=== PATIENT | male | born 1975 | race Asian ===

== ENCOUNTER 2016-03-22 06:40 | Day surgery (SDC) | payer OTHER ==
[2016-03-22] VITALS (13 sets, daily range): BP systolic 108–129; BP diastolic 63–92; PULSE 92–112; RESP 18–28; Ht 182.9 cm; Wt 143.0 kg
[~2016-03-22] VITALS: Ht 182.9 cm; Wt 143.0 kg
[~2016-03-22 06:40] MED LIST: ARIP10TA13 PO; ATOR10TA65 PO; BUPR-75 PO; CARV6.25 PO; FURO40TA4 PO; LURA40TA PO; LURA80TA PO; POTA-57 PO; TRAZ50TA18 PO
[2016-03-22] MEDS ORDERED: CARV12.579 PO (08:04)
[2016-03-22] MEDS ORDERED: LURA80TA PO (08:05)
[2016-03-22] MEDS ORDERED: LISI-525 PO (08:13)
[2016-03-22] MEDS ORDERED: QUET100T25 PO (08:17)
[2016-03-22] MEDS ORDERED: ESCI10TA PO (08:18)
[2016-03-22] MEDS ORDERED: APIX5TAB PO (08:19)
[2016-03-22 08:31] LABS: BASOPHILS % 0.5 % (0.0-2.0); EOSINOPHILS # 0.3 10^3/ul (0.0-0.5); EOSINOPHILS % 4.1 % (0.0-7.0); HEMATOCRIT 46.7 % (42.0-52.0); HEMOGLOBIN 15.9 g/dl (14.0-18.0); LYMPHOCYTES % 26.4 % (15.0-51.0); MEAN CORPUSCULAR HEMOGLOBIN 30.9 pg (29.0-33.0); MEAN CORPUSCULAR HGB CONC 34.1 g/dl (32.0-37.0); MEAN CORPUSCULAR VOLUME 90.5 fl (82.0-101.0); MEAN PLATELET VOLUME 7.8 fl (7.4-10.4); MONOCYTE # 1.3 10^3/ul (0.3-0.9); NEUTROPHILS % 52.5 % (39.0-77.0); PLATELET COUNT 220 10^3/UL (140-440); RED BLOOD COUNT 5.17 10^6/ul (4.70-6.10); RED CELL DISTRIBUTION WIDTH 13.5 % (11.5-14.5); UNCORRECTED WBC 7.6 10^3/ul (4.8-10.8); WHITE BLOOD COUNT 7.6 10^3/ul (4.8-10.8)
[2016-03-22 08:39] LABS: INR 1.16; PROTIME 14.9 Sec (12.2-14.2); PT RATIO 1.2
[2016-03-22 08:40] LABS: PARTIAL THROMBOPLASTIN TIME 32.2 Sec (25.0-35.0)
[2016-03-22 08:43] LABS: CONDITION 1; LH ANALYZER COMMENTS 1; MONOCYTES % 16.5 % (0.0-11.0)
[2016-03-22 08:45] LABS: CALCIUM 8.9 mg/dl (8.4-10.2); CREATININE 1.34 mg/dl (0.61-1.24); POTASSIUM 3.6 mmol/L (3.5-5.1)
[2016-03-22] MEDS ORDERED: DIPHENHYDRAMINE 50 MG INJ IV ONE (09:00)
[2016-03-22] MEDS ORDERED: FAMOTIDINE 20 MG INJ IV ONE (09:00)
[2016-03-22] MEDS ORDERED: IODIXANOL LOCM 100 ML BTL ONE ×2 (09:24→10:25)
[2016-03-22] MEDS ORDERED: NITROGLYCERIN (IC) 100 MCG/ML INJ ONE (09:24)
[2016-03-22] MEDS ORDERED: HEPARIN 1000 UNITS/ML 10 ML INJ ONE (09:24)
[2016-03-22] MEDS ORDERED: LIDOCAINE 1% (MDV) 20 ML INJ ONE (09:24)
[2016-03-22] MEDS ORDERED: FENTAnyl 50 MCG/ML VIAL ONE (09:24)
[2016-03-22] MEDS ORDERED: VERAPAMIL 5 MG INJ ONE (09:24)
[2016-03-22] MEDS ORDERED: MIDAZOLAM 1 MG/ML 2 ML INJ ONE (09:24)
--- NOTE | 2016-03-22 10:27 | PDOCDIS ---
Discharge Instructions CONDITION Patient Condition: Good HOME CARE INSTRUCTIONS: Diet Instructions: Low Fat /Cholesterol ACTIVITY: Activity Restrictions Comment: no lifting with right arm more then 5 pounds x 3 days OTHER ORDERS: Other Orders: Restart anu 03/23/16 Nilesh Lake DO Mar 22, 2016 10:27
[2016-03-22] MEDS ORDERED: ACETAMINOPHEN 325 MG TAB PO PRN ×2 (10:30)
--- NOTE | 2016-03-22 18:32 | CARRPT ---
DATE OF PROCEDURE: 03/22/2016 PROCEDURES: 1. Left heart catheterization. 2. ____. 3. Interpretation and supervision of right and left coronary angiogram. 4. Left ventricular pressure measurements. 5. Right radial artery approach. PATIENT HISTORY: This is a 40-year-old male who presents with congestive heart failure and severe c ardiomyopathy. FINDINGS: HEMODYNAMICS 1. LV pressure 113/6 with an EDP of 22. 2. Aortic pressure 114/56. CORONARY ANATOMY 1. Left main is a large caliber vessel with no significant disease. 2. LAD is a medium to large caliber vessel with a mid 20% stenosis and a distal 10% stenosis. 3. Circumflex is a large caliber vessel with a proximal 10% stenosis. 4. RCA is a medium to large caliber vessel and is dominant with a mid-10% stenosis. DESCRIPTION OF PROCEDURE: The patient was brought to the ear mold laboratory technician after informed consent. The thomas ent was prepped and draped as per protocol. Right radial artery access was obtained and a 5/6-Frenc h sheath was placed in the right radial artery. A 5- JL2.5 catheter was used to engage the left loretta n and angiogram was performed. We next used a 5-Mongolian JR4 catheter to enter the left ventricle and pressure measurements were obtained as well as pullback. We next engaged the RCA. Angiogram was p erformed. There was no evidence of obstructive epicardial coronary artery disease. All catheters a nd wires were removed. The patient was transferred to recovery in stable condition with no immediat e complications. DIAGNOSIS: Baseline nonischemic cardiomyopathy. COMPLICATIONS: None. BLOOD LOSS: Minimal. RECOMMENDATIONS: Aggressive medical management. Dictated By: HERMAN CANDELARIO/NICKI Conf#: [id number] DID#: [id number]
== END 2016-03-22 14:21 | disposition home or self-care (01) ==
LOC: SDS 06:40
PROVIDERS: ATTEND Internal Medicine Cardiovascular Disease
DX: I50.9 Heart failure, unspecified (principal); I42.9 Cardiomyopathy, unspecified; I48.91 Unspecified atrial fibrillation; I10 Essential (primary) hypertension
CPT/HCPCS: 80048; 85025; 85610; 85730; 93458; C1769; C1887; J1644; J2250; J3010; Q9967; Z7610

== ENCOUNTER 2016-04-17 05:44 | Observation (INO) | payer OTHER ==
[2016-04-17] VITALS (14 sets, daily range): BP systolic 100–162; BP diastolic 56–102; PULSE 14–136; RESP 16–26
[~2016-04-17] VITALS: Ht 182.9 cm; Wt 136.0 kg
[~2016-04-17 05:44] MED LIST changes: +APIX5TAB PO; -ARIP10TA13 PO; +CARV12.579 PO; -CARV6.25 PO; +ESCI10TA PO; +LISI-525 PO; -LURA40TA PO; -POTA-57 PO; +QUET100T PO
[2016-04-17] MEDS ORDERED: LIDOCAINE 1% (MDV) 20 ML INJ ONE (06:38)
[2016-04-17] MEDS ORDERED: IODIXANOL LOCM 50 ML BTL ONE (06:38)
[2016-04-17] MEDS ORDERED: DIPHENHYDRAMINE 50 MG INJ ONE (07:06)
[2016-04-17] MEDS ORDERED: CEFAZOLIN 2 GM/50 ML (PMX) 50 ML IVPB ONE (07:06)
[2016-04-17] MEDS ORDERED: METHYLPREDNISOLONE 125 MG INJ ONE (07:07)
[2016-04-17] MEDS ORDERED: FENTAnyl 50 MCG/ML VIAL ONE ×3 (07:21→09:18)
[2016-04-17] MEDS ORDERED: MIDAZOLAM 1 MG/ML 2 ML INJ ONE ×3 (07:21→09:18)
[2016-04-17] MEDS ORDERED: FAMOTIDINE 20 MG INJ IV ONE (07:30)
[2016-04-17] MEDS ORDERED: POLYMYXIN/BACITRACIN 1L IRRIG IRR ONE (07:30)
[2016-04-17] MEDS ORDERED: [UNRECOGNIZED DRUG - REMARK] XX SCH (11:00)
[2016-04-17] MEDS: BUPROPION (XL) 150 MG TAB PO SCH (11:12)
[2016-04-17] MEDS: FUROSEMIDE 40 MG TAB PO SCH (11:14)
[2016-04-17] MEDS ORDERED: SOD CHLORIDE 0.9% 1,500 ML ONE (12:57)
--- NOTE | 2016-04-17 15:36 | HP ---
DATE OF ADMISSION: 04/17/2016 CHIEF COMPLAINT: Status post dual chamber implantable cardioverter defibrillator placement. HISTORY OF PRESENT ILLNESS: This is a 40-year-old male with a past medical history of nonischemic c ardiomyopathy with an ejection fraction of approximately 25%, history of CHF, history of atrial fibr illation, history of obesity, hypertension, history of depression and mood disorder who presents to [facility] to undergo elective dual chamber ICD placement. The patient was previo usly admitted to [facility] approximately 5 months ago in December. At that time, the patient came in with atrial fibrillation with rapid rate. He was diagnosed with new onset CHF a nd the patient was medically managed and was discharged. He then presented back to [facility] in March where he underwent cardiac catheterization that showed nonischemic cardiomyo lino. The patient has been medically managed at home and has been brought in today by his cardiolo gist, Dr. Lake to have a dual chamber ICD placed. The patient successfully underwent placement po stoperatively. The patient has been stable. There have been no episodes of chest pain, no hemoptys is, hematemesis or hematochezia. PAST MEDICAL HISTORY: As stated above, history of nonischemic cardiomyopathy, history of obesity, h istory of hypertension, history of atrial fibrillation, dyslipidemia and depression. PAST SURGICAL HISTORY: Status post cardiac catheterization, status post dual chamber ICD placement. ALLERGIES: THE PATIENT IS ALLERGIC TO SHELLFISH SHRIMP. FAMILY HISTORY: No family history of congestive kidney disease. SOCIAL HISTORY: Does not drink, smoke or do drugs. MEDICATIONS: The patient's medications have been reviewed and reconciled. REVIEW OF SYSTEMS: A 14-point review of systems was conducted. Pertinent positives stated in HPI, otherwise negative. PHYSICAL EXAMINATION: VITAL SIGNS: Blood pressure is currently 100/65, respirations 16, pulse 102, temperature 98.6. HEENT: Head is normocephalic. NECK: Supple. HEART: Irregularly irregular. LUNGS: Show diminished breath sounds at base. CHEST: The patient has a dressing over his left chest, clean, dry and intact. ABDOMEN: Soft, nontender to palpation. No rebound or guarding. EXTREMITIES: Negative for clubbing, cyanosis, or edema. DERMATOLOGIC: No rashes. MUSCULOSKELETAL: No joint effusions. NEUROLOGIC: No focal deficits.. LABORATORY DATA: Currently pending. ASSESSMENT AND PLAN: This is a 40-year-old male who presents with: 1. Nonischemic cardiomyopathy. Patient is status post dual chamber implantable cardioverter defibr illator placement. Plan at this point is to monitor the patient on the telemetry floor. We will fo llow up with cardiology for further recommendations. Continue local wound care at implantable cardi overter defibrillator site. 2. Atrial fibrillation, currently with rapid rate. Continue current medical management with Coreg. Anticipate resuming Eliquis in the morning and will monitor closely. 3. Hypertension. Blood pressure is currently controlled. Will resume lisinopril, Lasix and Coreg. 4. Nonischemic cardiomyopathy. The patient is currently compensated. Continue current medical man agement and follow up with cardiology recommendations. 5. Obesity. Recommend dietary modification. 6. History of depression. We will continue psychotropic medications Wellbutrin, Lexapro. Seroque l and Latuda. 7. Gastrointestinal prophylaxis. Continue sequential leg squeezers and H2 blockers 8. History of previous illicit drug use. Continue to monitor. Please note, I spoke up to 20 minutes with the patient in [id number] time discussing code status. The patient is a full code. Dictated By: ADILENE MERRILL/NICKI Conf#: [id number] DID#: [id number]
[2016-04-17 16:35] LABS: HEMATOCRIT 49.5 % (42.0-52.0); HEMOGLOBIN 16.7 g/dl (14.0-18.0); MEAN CORPUSCULAR HEMOGLOBIN 30.8 pg (29.0-33.0); MEAN CORPUSCULAR HGB CONC 33.8 g/dl (32.0-37.0); MEAN CORPUSCULAR VOLUME 91.2 fl (82.0-101.0); MEAN PLATELET VOLUME 8.2 fl (7.4-10.4); PLATELET COUNT 206 10^3/UL (140-440); RED BLOOD COUNT 5.43 10^6/ul (4.70-6.10); RED CELL DISTRIBUTION WIDTH 13.3 % (11.5-14.5); UNCORRECTED WBC 8.3 10^3/ul (4.8-10.8); WHITE BLOOD COUNT 8.3 10^3/ul (4.8-10.8)
[2016-04-17 16:38] LABS: CONDITION 1; LH ANALYZER COMMENTS 1
[2016-04-17 16:54] LABS: POTASSIUM 4.2 mmol/L (3.5-5.1)
[2016-04-17 16:56] LABS: CREATININE 1.35 mg/dl (0.61-1.24)
[2016-04-17 16:57] LABS: CALCIUM 9.1 mg/dl (8.4-10.2)
[2016-04-17 17:20] LABS: LYMPHOCYTES # 0.4 10^3/ul (0.8-2.9); MONOCYTE # 0.3 10^3/ul (0.3-0.9); NEUTROPHIL # 7.6 10^3/ul (1.6-7.5)
[2016-04-17 17:21] LABS: PLATELET ESTIMATE PLT APPEAR ADEQUATE
[2016-04-17] MEDS: ACETAMINOPHEN 325 MG TAB PO PRN (20:31)
[2016-04-17] MEDS ORDERED: traZODone 50 MG TAB PO SCH (21:00)
[2016-04-17] MEDS ORDERED: QUETIAPINE 100 MG TAB PO SCH (21:00)
[2016-04-18 00:24] VITALS: PULSE 102
[2016-04-18] MEDS: ACETAMINOPHEN 325 MG TAB PO PRN (04:16)
[2016-04-18 04:19] VITALS: BP 135/77; RESP 20
[2016-04-18 04:32] VITALS: PULSE 82
[2016-04-18 07:12] VITALS: BP 109/63; RESP 20
[2016-04-18 08:34] VITALS: PULSE 83
[2016-04-18 08:37] LABS: HEMATOCRIT 46.3 % (42.0-52.0); HEMOGLOBIN 15.6 g/dl (14.0-18.0); LYMPHOCYTES # 0.9 10^3/ul (0.8-2.9); LYMPHOCYTES % 6.8 % (15.0-51.0); MEAN CORPUSCULAR HEMOGLOBIN 30.8 pg (29.0-33.0); MEAN CORPUSCULAR HGB CONC 33.8 g/dl (32.0-37.0); MEAN CORPUSCULAR VOLUME 91.2 fl (82.0-101.0); MEAN PLATELET VOLUME 8.4 fl (7.4-10.4); MONOCYTE # 0.9 10^3/ul (0.3-0.9); MONOCYTES % 6.5 % (0.0-11.0); NEUTROPHIL # 11.6 10^3/ul (1.6-7.5); NEUTROPHILS % 86.7 % (39.0-77.0); PLATELET COUNT 175 10^3/UL (140-440); RED BLOOD COUNT 5.08 10^6/ul (4.70-6.10); RED CELL DISTRIBUTION WIDTH 13.7 % (11.5-14.5); UNCORRECTED WBC 13.4 10^3/ul (4.8-10.8); WHITE BLOOD COUNT 13.4 10^3/ul (4.8-10.8)
[2016-04-18 08:40] LABS: POTASSIUM 4.1 mmol/L (3.5-5.1)
[2016-04-18 08:42] LABS: CREATININE 0.98 mg/dl (0.61-1.24)
[2016-04-18 08:43] LABS: CALCIUM 9.2 mg/dl (8.4-10.2); PHOSPHORUS 3.4 mg/dl (2.5-4.9)
[2016-04-18 08:44] LABS: MAGNESIUM 1.8 mg/dl (1.7-2.5)
[2016-04-18 08:57] LABS: CONDITION 1
[2016-04-18] MEDS ORDERED: NON-FORMULARY/PATIENT OWN MED (Lurasidone Hcl (Latuda) 80 MG) XX SCH (09:00)
[2016-04-18] MEDS ORDERED: LISINOPRIL 20 MG TAB PO SCH (09:00)
[2016-04-18] MEDS ORDERED: ESCITALOPRAM 10 MG TAB PO SCH (09:00)
[2016-04-18] MEDS: BUPROPION (XL) 150 MG TAB PO SCH (09:14)
[2016-04-18] MEDS: FUROSEMIDE 40 MG TAB PO SCH (09:14)
[2016-04-18 11:14] VITALS: BP 118/73; RESP 20
--- NOTE | 2016-04-18 11:46 | PN ---
DATE: 04/18/2016 SUBJECTIVE: The patient feels well, minimal pain at the site. OBJECTIVE: VITAL SIGNS: Temperature 98.3, pulse 83, blood pressure 109/63, oxygen saturation 96% on room air. NECK: No jugular venous distention. LUNGS: Clear. HEART: ICD site is clean, dry, and intact with no hematoma noted. LABORATORY RESULTS FROM YESTERDAY: Reviewed. Creatinine 1.3. IMAGING: No pneumothorax on x-ray. ASSESSMENT: At this time, the patient is cleared for discharge to be completed by Dr. Interiano. He is to resume Xarelto this evening. PLAN: Follow him in the office in the coming days. Dictated By: LUIS ENRIQUE MONTERO/NICKI Conf#: [id number] DID#: [id number]
--- NOTE | 2016-04-18 12:22 | OPR ---
DATE OF OPERATION: 04/17/2016 PREOPERATIVE DIAGNOSIS: Cardiomyopathy, congestive heart failure, and atrial fibrillation. POSTOPERATIVE DIAGNOSIS: Cardiomyopathy, congestive heart failure, and atrial fibrillation. PROCEDURE PERFORMED: Dual-chamber implantable cardioverter/defibrillator implantation with failed l eft ventricular lead placement. DESCRIPTION OF PROCEDURE: The patient was brought to the catheterization laboratory in a fasting st ate. Informed consent was signed for the procedure and sedation. The patient was given antibiotics prior to skin incision. A 4 cm incision was made under the left clavicle. A venogram revealed patent subclavian vein. Three venous accesses were obtained by using the axillary approach. Through the first sheath, a 9-Zambian peel-away sheath was placed through which the dual coil ICD heath d was placed on the lower RV septum. It was screwed into place where excellent sensing and pacing c haracteristics were obtained. The sheath was split and the lead was sutured to the fascia in the us ual fashion. Subsequently a Glidewire was placed through one of the accesses using a 7-Zambian dilator to transiti on. Over the Glidewire a Medtronic CS guide catheter extended hook was placed. Multiple attempts w ere made at calculated the coronary sinus using the extended hook as well as in/out catheters and CS L Decapolar catheters. The CS was not cannulated convincingly at any point. Difficulty was had due to patient's extremely large right atrium. The sheath was exchanged for multiple configurations; h owever, at no point was I successful in cannulating the coronary sinus. A decision to proceed with a dual-chamber ICD implantation was made. Through the same access, a 7-Zambian sheath was placed and the right atrial lead was placed in the ri t atrial appendage and screwed into place where excellent sensing and pacing characteristics were confirmed. The sheath was split and the lead was sutured to the fascia in the usual fashion. The pocket was irrigated. The device was attached to the leads. Pacing characteristics were confir med. Biventricular ICD generator was placed into the pocket with the intention of perhaps upgrading with an epicardial LV lead in the future. Pocket was closed in layers using 2-0 and 4-0 absorbable sutures. CONTROL ROOM AGENT: [employer]. Dictated By: LUIS ENRIQUE MONTERO/NICKI Conf#: [id number] DID#: [id number]
--- NOTE | 2016-04-18 15:04 | DS ---
DATE OF ADMISSION: 04/17/2016 DATE OF DISCHARGE: 04/18/2016 HOSPITAL COURSE: This is a 40-year-old male with a past medical history of nonischemic cardiomyopat hy with ejection fraction approximately 25%, history of CHF, atrial fibrillation, history of obesity , hypertension, depression, bipolar disorder who presented to [facility] to underg o elective dual chamber ICD placement. Patient was previously at [facility] appro ximately 5 months ago in December. At that time, he came in with atrial fibrillation with rapid rate . The patient was newly diagnosed with CHF which was medically managed and discharged. He underwen t cardiac catheterization approximately 1 month later, which showed nonischemic cardiomyopathy. Yes terday, the patient underwent elective ICD dual chamber placement by Dr. Lake. Following the proc edure, the patient was stable, was admitted to telemetry for overnight to telemetry for observation. The patient had no acute complications and currently will be discharged home where he will follow up with his primary care physician and his die turner in 1 week's time. At the time of discharge, the patient is stable, in no acute distress. FINAL DIAGNOSES: 1. Nonischemic cardiomyopathy, compensated. Continue current medical management. 2. Atrial fibrillation. Currently rate controlled. The patient will resume Coreg and Eliquis this evening. 3. Hypertension, controlled. He will continue current blood pressure regimen. 4. Status nonischemic cardiomyopathy. The patient is status post dual chamber placement. Continue medical management and follow up with Cardiology. 5. Renal insufficiency, possible chronic kidney disease. The patient's renal function is stable. The patient will follow up with his PCP and may be followed up by nephrology in outpatient setting. 6. History of depression, bipolar disorder. Will continue the patient on Seroquel, Latuda, Lexapro and Wellbutrin. 7. Previous history of drug abuse. CONDITION ON DISCHARGE: At time of discharge, the patient is stable, no acute distress. FINAL MEDICATIONS: Patient will resume: 1. Eliquis. 2. Atorvastatin. 3. Wellbutrin. 4. Coreg. 5. Lexapro. 6. Furosemide. 7. Lisinopril. 8. Latuda. 9. Seroquel. 10. Trazodone. Please note I spent over 40 minutes of time preparing the patient's discharge, discussed the case wi die turner, Dr. Cifuentes. Dictated By: ADILENE MERRILL/NICKI Conf#: [id number] DID#: [id number]
== END 2016-04-18 11:40 | disposition home or self-care (01) ==
LOC: SDS 05:44 → TEL 10:16 → UNDOADMOB 15:01
PROVIDERS: ADMIT Internal Medicine Cardiovascular Disease; ATTEND Internal Medicine Cardiovascular Disease
DX: I50.9 Heart failure, unspecified (principal); I42.9 Cardiomyopathy, unspecified; I48.91 Unspecified atrial fibrillation; F32.9 Major depressive disorder, single episode, unspecified; I10 Essential (primary) hypertension; E66.9 Obesity, unspecified; Z68.41 Body mass index [BMI] 40.0-44.9, adult
CPT/HCPCS: 33249; 80048; 83735; 84100; 85025; C1769; C1882; C1887; C1895; C2629; J0690; J1200; J2250; J2930; J3010; J7040; L3260; Q9967; Z7500; Z7610; G0378

== ENCOUNTER 2016-04-22 19:15 | Inpatient (IN) | payer OTHER ==
[~2016-04-22] VITALS: Ht 182.9 cm; Wt 138.2 kg
[2016-04-22] MEDS ORDERED: FUROSEMIDE 40 MG INJ IV STA (19:25)
[2016-04-22] MEDS ORDERED: NITROGLYCERIN 2% 1 GM OINT PKT TD STA (19:25)
[2016-04-22] MEDS ORDERED: ASPIRIN 81 MG TAB PO STA (19:25)
[2016-04-22] MEDS ORDERED: NITROGLYCERIN (SL) 0.4 MG TAB SL PRN (19:30)
[2016-04-22] MEDS ORDERED: DILTIAZEM 25 MG INJ IV ONE ×2 (20:00→21:00)
[2016-04-22] MEDS ORDERED: BUSP10TA2 PO (20:02)
[2016-04-22 20:08] LABS: BASOPHILS % 0.4 % (0.0-2.0); EOSINOPHILS # 0.1 10^3/ul (0.0-0.5); EOSINOPHILS % 1.7 % (0.0-7.0); HEMATOCRIT 50.1 % (42.0-52.0); HEMOGLOBIN 16.8 g/dl (14.0-18.0); LYMPHOCYTES # 2.3 10^3/ul (0.8-2.9); LYMPHOCYTES % 26.3 % (15.0-51.0); MEAN CORPUSCULAR HEMOGLOBIN 30.7 pg (29.0-33.0); MEAN CORPUSCULAR HGB CONC 33.5 g/dl (32.0-37.0); MEAN CORPUSCULAR VOLUME 91.6 fl (82.0-101.0); MEAN PLATELET VOLUME 8.3 fl (7.4-10.4); MONOCYTE # 1.3 10^3/ul (0.3-0.9); MONOCYTES % 15.2 % (0.0-11.0); NEUTROPHIL # 4.9 10^3/ul (1.6-7.5); NEUTROPHILS % 56.4 % (39.0-77.0); PLATELET COUNT 179 10^3/UL (140-440); RED BLOOD COUNT 5.47 10^6/ul (4.70-6.10); RED CELL DISTRIBUTION WIDTH 14.3 % (11.5-14.5); UNCORRECTED WBC 8.8 10^3/ul (4.8-10.8); WHITE BLOOD COUNT 8.8 10^3/ul (4.8-10.8)
[2016-04-22 20:17] LABS: INR 1.85; PROTIME 21.5 Sec (12.2-14.2); PT RATIO 1.7
[2016-04-22 20:18] LABS: PARTIAL THROMBOPLASTIN TIME 41.2 Sec (25.0-35.0)
[2016-04-22 20:25] LABS: CONDITION 1; LH ANALYZER COMMENTS 1
[2016-04-22] MEDS ORDERED: DILTIAZEM 30 MG TAB PO ONE (20:30)
[2016-04-22 20:36] LABS: POTASSIUM 4.6 mmol/L (3.5-5.1)
[2016-04-22 20:39] LABS: CREATININE 1.6 mg/dl (0.61-1.24)
[2016-04-22 20:40] LABS: CALCIUM 9.4 mg/dl (8.4-10.2)
--- NOTE | 2016-04-22 20:41 | ERD ---
ER Documentation Chief Complaint Date/Time DATE: 04/22/16 TIME: 20:40 Chief Complaint feels like his pacemaker isnt working. SOB/diaphoretic HPI Patient is a 40-year-old male with A. fib, hypertension, CHF who presents with shortness of breath. He had an AICD placed 1 week ago and felt like it turned off 2 nights after it was placed. He has shortness of breath as well. His primary doctor is Dr. Suzanne arguello and his icu rn was Dr. Cifuentes. He has had no treatment as of yet. ROS All systems reviewed and are negative except as per history of present illness. Medications Home Meds Reported Medications Buspirone Hcl* (Buspirone Hcl*) 10 Mg Tab, 10 MG PO BID, TAB 04/22/16 Apixaban* (Eliquis*) 5 Mg Tablet, 5 MG PO BID, TAB 03/22/16 Escitalopram Oxalate* (Lexapro*) 10 Mg Tablet, 10 MG PO DAILY, #30 TAB 03/22/16 Quetiapine Fumarate* (Seroquel*) 100 Mg Tablet, 100 MG PO HS, #30 TAB 03/22/16 Lisinopril* (Zestril*) 20 Mg Tablet, 20 MG PO DAILY, #30 TAB 03/22/16 Lurasidone Hcl (LATUDA) 80 Mg Tablet, 80 MG PO DAILY, #30 TAB 03/22/16 Carvedilol* (Carvedilol*) 12.5 Mg Tablet, 12.5 MG PO BID, #60 TAB 03/22/16 Furosemide* (Furosemide*) 40 Mg Tablet, 40 MG PO DAILY, TAB 01/04/16 Atorvastatin Calcium (Atorvastatin Calcium) 10 Mg Tablet, 10 MG PO QHS, #30 TAB 01/04/16 Bupropion Hcl* (Wellbutrin XL*) 150 Mg Tab.sr.24h, 150 MG PO QAM, TAB.SA 01/04/16 Trazodone Hcl* (Trazodone Hcl*) 50 Mg Tablet, 50 MG PO QHS, #30 TAB 01/04/16 Allergies Allergies: Coded Allergies: shellfish derived (Verified Allergy, Unknown, ITCHY, 04/22/16) shrimp (Verified Allergy, Unknown, 04/22/16) PMhx/Soc History of Surgery: No Anesthesia Reaction: No Hx Neurological Disorder: No Hx Respiratory Disorders: No Hx Cardiac Disorders: Yes (afib, heart failure ) Hx Psychiatric Problems: No Hx Miscellaneous Medical Probl: No Hx Alcohol Use: No Hx Substance Use: No Hx Tobacco Use: No Smoking Status: Never smoker FmHx Family History: No coronary disease Physical Exam Vitals Vital Signs Date Time Temp Pulse Resp B/P Pulse Ox O2 Delivery O2 Flow Rate FiO2 04/22/16 20:04 97.9 104 18 120/107 98 Nasal Cannula 2.0 04/22/16 19:40 122 18 125/108 98 Nasal Cannula 2.0 04/22/16 19:40 Nasal Cannula 2 04/22/16 19:20 62 17 121/98 98 Physical Exam Const: Diaphoretic Head: Atraumatic Eyes: Normal Conjunctiva ENT: Normal External Ears, Nose and Mouth. Neck: Full range of motion..~ No meningismus. Resp: Tachycardic rate with irregular rhythm Cardio: Regular rate and rhythm, no murmurs Abd: Soft, non tender, non distended. Normal bowel sounds Skin: Diaphoretic skin Back: No midline or flank tenderness Ext: No cyanosis, or edema Neur: Awake and alert Psych: Normal Mood and Affect Result Diagram: 04/22/16195404/22/161954 Results 24 hrs Laboratory Tests Test 04/22/16 19:55 Activated Partial Thromboplast Time 41.2Sec Anion Gap 20 Basophils # 0.010^3/ul Basophils % 0.4% Blood Urea Nitrogen 22mg/dl Calcium Level 9.4mg/dl Carbon Dioxide Level 24mmol/L Chloride Level 102mmol/L Creatinine 1.60mg/dl Eosinophils # 0.110^3/ul Eosinophils % 1.7% Glucose Level 111mg/dl Hematocrit 50.1% Hemoglobin 16.8g/dl INR International Normalized Ratio 1.85 Lymphocytes # 2.310^3/ul Lymphocytes % 26.3% Mean Corpuscular Hemoglobin 30.7pg Mean Corpuscular Hemoglobin Concent 33.5g/dl Mean Corpuscular Volume 91.6fl Mean Platelet Volume 8.3fl Monocytes # 1.310^3/ul Monocytes % 15.2% Neutrophils # 4.910^3/ul Neutrophils % 56.4% Nucleated Red Blood Cells # 0.010^3/ul Nucleated Red Blood Cells % 0.0/100WBC Platelet Count 78821^3/UL Potassium Level 4.6mmol/L Prothrombin Time Pending Prothrombin Time Ratio 1.7 Red Blood Count 5.4710^6/ul Red Cell Distribution Width 14.3% Sodium Level 141mmol/L Troponin I 0.035ng/ml White Blood Count 8.810^3/ul Current Medications Medications (Trade) Dose Ordered Sig/[place] Route PRN Reason Start Time Stop Time Status Last Admin Dose Admin Aspirin (Aspirin) 162 mg ONCE STAT PO 04/22/16 19:25 04/22/16 19:26 04/22/16 19:49 Nitroglycerin (Nitroglycerin 2% Oint) 1 inch ONCE STAT TD 04/22/16 19:25 04/22/16 19:26 Nitroglycerin (Nitroglycerin (Sl Tab) 0.4 Mg) 1 tab Q5M UP TO 3 DOSES PRN SL CHEST PAIN 04/22/16 19:30 Furosemide (Lasix) 40 mg ONCE STAT IV 04/22/16 19:25 04/22/16 19:26 04/22/16 19:48 Diltiazem HCl (Cardizem Iv) 10 mg ONCE ONCE IV 04/22/16 20:00 04/22/16 20:01 04/22/16 19:53 Diltiazem HCl (Cardizem) 30 mg ONCE ONCE PO 04/22/16 20:30 04/22/16 20:31 04/22/16 20:28 Diltiazem HCl (Cardizem Iv) 10 mg ONCE ONCE IV 04/22/16 21:00 04/22/16 21:01 04/22/16 20:46 Procedures/MDM EKG read by me: Rate/Rhythm: Rapid atrial fibrillation at a rate of 128 Intervals: Normal Impression: Rapid atrial fibrillation without evidence of ischemia Chest X-ray 1V Interpreted by me: Soft Tissue: No acute abnormalities Bones: No acute abnormalities Mediastinum/Cardiac Silhouette/Lungs: Cardiomegaly with pulmonary edema at the bases bilaterally, no pneumonia or pneumothorax Patient is a 40-year-old male who presents with what appears to be pulmonary edema and rapid atrial fibrillation. He was given aspirin, nitroglycerin, diltiazem IV, and diltiazem p.o. I also called [employer] and a rep came to interrogate the pacemaker/AICD. The AICD is working correctly but he has been in rapid atrial fibrillation in the low 100s since placement of the device. I wanted to admit the patient to a telemetry bed for further treatment of A. fib and CHF but he is refusing and wants to leave AGAINST MEDICAL ADVICE. I explained to him the risks of signing out AGAINST MEDICAL ADVICE including myocardial infarction and the patient understands the risks. He should follow-up with his icu rn within 24 hours for reevaluation. He can return sooner for any worsening symptoms. Critical Care: Time: 35 minutes excluding all billable procedures. Treatments/Evaluations: Close monitoring and treatment of unstable vital signs, cardiorespiratory, and neurologic status, while maintaining tight balance of fluid, respiratory, and cardiac interventions. Departure Diagnosis: Primary Impression: Rapid atrial fibrillation Additional Impressions: Shortness of breath CHF exacerbation Congestive heart failure type: unspecified congestive heart failure type Qualified Code: I50.9 - Acute on chronic congestive heart failure, unspecified congestive heart failure type Condition: Fair Patient Instructions: Atrial Fibrillation, Heart Failure, General Referrals: MEI SNOWDEN (PCP) LUIS ENRIQUE CIFUENTES MD Additional Instructions: FOLLOW UP WITH YOUR PRIMARY CARE PHYSICIAN TOMORROW.Return to this facility if you are not improving as expected. RC KASPER MD Apr 22, 2016 20:41
[2016-04-22 20:51] LABS: TROPONIN-I 0.035 ng/ml (0.00-0.12)
[2016-04-22] MEDS ORDERED: ONDANSETRON 4 MG INJ IV PRN (21:30)
[2016-04-22] MEDS ORDERED: ACETAMINOPHEN 325 MG TAB PO PRN (21:30)
--- NOTE | 2016-04-22 22:09 | RADRPT ---
PROCEDURE: XR Chest. CLINICAL INDICATION: Chest pain TECHNIQUE: Single AP portable chest COMPARISON: 01/04/2016 FINDINGS: Marked cardiomegaly and/or pericardial effusion. Low interval change compared to prior study. Mode rate vascular congestion. Dual chamber left chest pacemaker in place. . No focal consolidation. Sm all right pleural effusion. No pneumothorax. The osseous structures and soft tissues are unremarka ble. IMPRESSION: 1. Mild CHF and marked cardiomegaly. No focal consolidation. 2. Small right pleural effusion RPTAT:AAJJ Ozzie Woodruff Physician Date Time Electronically viewed and signed by Physician José on 04/22/2016 22:09 FAMILIA/
[2016-04-22 22:18] VITALS: TEMP 98.1
[2016-04-22 22:30] VITALS: Ht 182.9 cm; Wt 138.2 kg
[2016-04-22 22:33] VITALS: PULSE 80
[2016-04-22 22:42] VITALS: BP 117/78; RESP 16
[2016-04-22 23:53] VITALS: BP 108/72; RESP 16
[2016-04-23] VITALS (8 sets, daily range): BP systolic 94–125; BP diastolic 51–75; PULSE 60–92; RESP 16–20
[2016-04-23] MEDS ORDERED: ZOLPIDEM 5 MG TAB PO PRN
[2016-04-23] MEDS ORDERED: morphine 2 MG INJ IV PRN
[2016-04-23] MEDS ORDERED: NACL 0.9% 3 ML SYG IV SCH
[2016-04-23] MEDS ORDERED: HYDROCODONE/APAP (5/325) TAB PO PRN
[2016-04-23] MEDS ORDERED: ONDANSETRON 4 MG INJ IV PRN
[2016-04-23] MEDS ORDERED: DOCUSATE SODIUM 100 MG CAP PO PRN
[2016-04-23] MEDS ORDERED: ACETAMINOPHEN 325 MG TAB PO PRN
[2016-04-23 01:43] LABS: CK-MB 1.62 ng/ml (0.0-2.4)
[2016-04-23 01:45] LABS: TROPONIN-I 0.041 ng/ml (0.00-0.12)
[2016-04-23] MEDS ORDERED: LORAZEPAM 1 MG TAB PO PRN (04:00)
[2016-04-23] MEDS ORDERED: FUROSEMIDE 40 MG INJ IV SCH (06:00)
[2016-04-23 06:38] LABS: POTASSIUM 3.7 mmol/L (3.5-5.1)
[2016-04-23 06:40] LABS: CREATININE 1.31 mg/dl (0.61-1.24)
[2016-04-23 06:41] LABS: CALCIUM 9.1 mg/dl (8.4-10.2); MAGNESIUM 1.9 mg/dl (1.7-2.5); PHOSPHORUS 4.9 mg/dl (2.5-4.9)
[2016-04-23 06:46] LABS: BASOPHILS % 0.7 % (0.0-2.0); EOSINOPHILS # 0.2 10^3/ul (0.0-0.5); EOSINOPHILS % 2.6 % (0.0-7.0); HEMATOCRIT 45.6 % (42.0-52.0); HEMOGLOBIN 15.5 g/dl (14.0-18.0); LYMPHOCYTES # 1.7 10^3/ul (0.8-2.9); MEAN CORPUSCULAR HEMOGLOBIN 30.9 pg (29.0-33.0); MEAN CORPUSCULAR VOLUME 90.8 fl (82.0-101.0); MEAN PLATELET VOLUME 8.3 fl (7.4-10.4); MONOCYTE # 1.2 10^3/ul (0.3-0.9); MONOCYTES % 17.3 % (0.0-11.0); NEUTROPHIL # 3.9 10^3/ul (1.6-7.5); NEUTROPHILS % 55.4 % (39.0-77.0); PLATELET COUNT 161 10^3/UL (140-440); RED BLOOD COUNT 5.02 10^6/ul (4.70-6.10); RED CELL DISTRIBUTION WIDTH 14.1 % (11.5-14.5)
[2016-04-23 06:50] LABS: CK-MB 1.41 ng/ml (0.0-2.4)
[2016-04-23 06:51] LABS: TROPONIN-I 0.026 ng/ml (0.00-0.12)
[2016-04-23 06:54] LABS: CONDITION 1; LH ANALYZER COMMENTS 1
--- NOTE | 2016-04-23 07:47 | HP ---
DATE OF ADMISSION: 04/22/2016 CHIEF COMPLAINT: Shortness of breath. HISTORY OF PRESENT ILLNESS: The patient is a 40-year-old male with a history of nonischemic cardiom yopathy, atrial fibrillation, hypertension, depression, bipolar disease, history of previous drug us e, status post recent ICD placement for his cardiomyopathy. The patient has a known ejection fracti on of 25%. He has had hospitalizations for CHF exacerbation. The patient did have recent cardiac c atheterization that showed nonischemic cardiomyopathy. The patient presented with shortness of carlin th over the past several days. He has no other complaints at this time. PAST MEDICAL HISTORY: As per HPI. PAST SURGICAL HISTORY: Status post heart catheterization, status post dual chamber ICD placement. HOME MEDICATIONS: 1. Buspirone. 2. Eliquis. 3. Lexapro. 4. Seroquel. 5. Lisinopril. 6. Latuda. 7. Coreg. 8. Furosemide. 9. Atorvastatin. 10. Wellbutrin. 11. Trazodone. ALLERGIES: SHELLFISH AND SHRIMP. FAMILY HISTORY: No reports of coronary artery disease. SOCIAL HISTORY: No alcohol, tobacco, or drug use at this time. REVIEW OF SYSTEMS: A 12-point review of systems negative except that in the HPI. PHYSICAL EXAMINATION: VITAL SIGNS: Temperature is 97.9, pulse 79, respiratory rate 16, BP is 117/78, saturation 94% on ro om air. GENERAL: No acute distress, alert and oriented. HEENT: Normocephalic, atraumatic. LUNGS: Clear to auscultation. CARDIOVASCULAR: Regular rate and rhythm. ABDOMEN: Nondistended, nontender, soft. EXTREMITIES: No clubbing, cyanosis, or edema. LABORATORIES: CBC is within normal limits. Chemistry within normal limits except for BUN of 22, cr eatinine is 1.60. Troponins is 0.035. INR is 1.85. DIAGNOSTICS: Chest x-ray shows mild CHF, marked cardiomegaly, no focal consolidation, small right p leural effusion. ASSESSMENT AND PLAN: 1. Systolic congestive heart failure exacerbation. The patient has a known history of nonischemic cardiomyopathy with an ejection fraction of 25%. The patient is status post recent ICD placement la week. We will diurese with Lasix IV and hold his home Lasix p.o. 2. Atrial fibrillation. The patient's rate was elevated in the ED, but now it is rate controlled. Continue home medications including his home Eliquis and beta bernarda. 3. Depression with bipolar disorder. Continue home psychiatric medications. 4. Hypertension, stable. Continue home medications. 5. Chronic kidney disease. The patient's creatinine is slightly elevated compared to several days ago. This may be cardiorenal in etiology secondary to congestive heart failure exacerbation. We wi ll diurese and monitor. If creatinine continues to be high in the a.m., we will consider nephrology consultation. 6. Prophylaxis, on Eliquis. Dictated By: DENNY MOYA MD BS/NTS Conf#: [id number] DID#: [id number]
[2016-04-23] MEDS: ESCITALOPRAM 10 MG TAB PO SCH ×2 (08:56→08:59)
[2016-04-23] MEDS ORDERED: BUPROPION (XL) 150 MG TAB PO SCH (09:00)
[2016-04-23] MEDS ORDERED: NON-FORMULARY/PATIENT OWN MED (Lurasidone Hcl (Latuda) 80 MG) PO SCH (09:00)
[2016-04-23] MEDS ORDERED: LISINOPRIL 20 MG TAB PO SCH (09:00)
[2016-04-23] MEDS ORDERED: BUSPIRONE 10 MG TAB PO SCH (09:00)
[2016-04-23] MEDS ORDERED: APIXABAN 5 MG TABLET PO SCH (09:00)
--- NOTE | 2016-04-23 11:23 | PN ---
Date/Time of Note Date/Time of Note DATE: 04/23/16 TIME: 11:20 Assessment/Plan VTE Prophylaxis VTE Prophylaxis Intervention: other (eliquis ) Lines/Catheters IV Catheter Type (from [facility]): [facility] Urinary Cath still in place: No Assessment/Plan Assessment/Plan 1. Systolic congestive heart failure exacerbation. The patient has a known history of nonischemic cardiomyopathy with an ejection fraction of 25%. The patient is status post recent ICD placement last week. We will diurese with Lasix IV and hold his home Lasix p.o. 2. Atrial fibrillation. The patient's rate was elevated in the ED, but now it is rate controlled. Continue home medications including his home Eliquis and beta bernarda. 3. Depression with bipolar disorder. Continue home psychiatric medications. 4. Hypertension, stable. Continue home medications. 5. Chronic kidney disease. The patient's creatinine is slightly elevated compared to several days ago. This may be cardiorenal in etiology secondary to congestive heart failure exacerbation. We will diurese and monitor. If creatinine continues to be high in the a.m., we will consider nephrology consultation. 6. Prophylaxis, on Eliquis. pt wants to leave against advised he has been counselled multiple times by me and nursing staff- he understood and verbalized understanding of risks and complications including total time spent on this progress note >45 minutes Subjective 24 Hr Interval Summary Free Text/Dictation pt wants to leave against medical advise despite not being HR controlled, no chest pain, no palpitations Exam/Review of Systems Vital Signs Vitals Vital Signs Date Time Temp Pulse Resp B/P Pulse Ox O2 Delivery O2 Flow Rate FiO2 04/23/16 08:24 80 04/23/16 07:48 98.2 18 100/70 96 04/23/16 04:00 Nasal Cannula 04/22/16 20:04 2.0 Intake and Output 04/22/16 04/22/16 04/23/16 15:00 23:00 07:00 Intake Total 350 ml Output Total 400 ml 850 ml Balance -400 ml -500 ml Exam GENERAL: No acute distress, alert and oriented. HEENT: Normocephalic, atraumatic. LUNGS: Clear to auscultation. CARDIOVASCULAR: irregularly irregular Heart rate and rthythm ABDOMEN: Nondistended, nontender, soft. EXTREMITIES: No clubbing, cyanosis, or edema. Results Result Diagram: 04/23/16 0541 04/23/16 0541 Results 24 hrs Laboratory Tests Test 04/22/16 19:55 04/23/16 01:02 04/23/16 05:41 Activated Partial Thromboplast Time 41.2 H Anion Gap 20 H 16 Basophils # 0.0 0.0 Basophils % 0.4 0.7 Blood Urea Nitrogen 22 H 21 H Calcium Level 9.4 9.1 Carbon Dioxide Level 24 27 Chloride Level 102 103 Creatinine 1.60 H 1.31 H Eosinophils # 0.1 0.2 Eosinophils % 1.7 2.6 Glucose Level 111 90 Hematocrit 50.1 45.6 Hemoglobin 16.8 15.5 INR International Normalized Ratio 1.85 Lymphocytes # 2.3 1.7 Lymphocytes % 26.3 24.0 Mean Corpuscular Hemoglobin 30.7 30.9 Mean Corpuscular Hemoglobin Concent 33.5 34.0 Mean Corpuscular Volume 91.6 90.8 Mean Platelet Volume 8.3 8.3 Monocytes # 1.3 H 1.2 H Monocytes % 15.2 H 17.3 H Neutrophils # 4.9 3.9 Neutrophils % 56.4 55.4 Nucleated Red Blood Cells # 0.0 0.0 Nucleated Red Blood Cells % 0.0 0.0 Platelet Count 179 161 Potassium Level 4.6 3.7 Prothrombin Time 21.5 #H Prothrombin Time Ratio 1.7 Red Blood Count 5.47 5.02 Red Cell Distribution Width 14.3 14.1 Sodium Level 141 142 Troponin I 0.035 0.041 0.026 White Blood Count 8.8 # 7.0 # Creatine Kinase 145 127 Creatine Kinase Index 1.1 1.1 Creatinine Kinase MB (Mass) 1.62 1.41 Hemoglobin A1c 6.8 H Magnesium Level 1.9 Phosphorus Level 4.9 Medications Medications Current Medications Ondansetron HCl (Zofran Inj) 4 mg Q6H PRN IV NAUSEA AND/OR VOMITING; Start 02/25 at 00:00 Acetaminophen (Tylenol Tab) 650 mg Q6H PRN PO PAIN LEVEL 1-3 OR FEVER; Start at 00:00 Acetaminophen/ Hydrocodone Bitart (Marshall (5/325)) 1 tab Q6H PRN PO MODERATE PAIN LEVEL 4-6; Start 04/23/16 at 00:00 Morphine Sulfate (morphine) 2 mg Q4H PRN IV SEVERE PAIN LEVEL 7-10; Start 04/23 at 00:00 Docusate Sodium (Colace) 100 mg Q12H PRN PO CONSTIPATION; Start 04/23/16 at 00: 00 Zolpidem Tartrate (Ambien) 5 mg QHS PRN PO SLEEP; Start 04/23/16 at 00:00 Apixaban (Eliquis) 5 mg BID PO Last administered on 04/23/16 08:56; Admin Dose 5 MG; Start 04/23/16 at 09:00 Atorvastatin Calcium (Lipitor) 10 mg QHS PO ; Start 04/23/16 at 21:00 Bupropion HCl (Wellbutrin Xl) 150 mg QAM PO Last administered on 04/23/16 08: 57; Admin Dose 150 MG; Start 04/23/16 at 09:00 Buspirone HCl (Buspar) 10 mg BID PO Last administered on 04/23/16 08:55; Admin Dose 10 MG; Start 04/23/16 at 09:00 Carvedilol (Coreg) 12.5 mg BID PO Last administered on 04/23/16 08:56; Admin Dose 12.5 MG; Start 04/23/16 at 09:00 Escitalopram Oxalate (Lexapro) 10 mg DAILY PO ; Start 04/23/16 at 09:00 Lisinopril (Zestril) 20 mg DAILY PO Last administered on 04/23/16 08:57; Admin Dose 20 MG; Start 04/23/16 at 09:00 Quetiapine Fumarate (Seroquel) 100 mg HS PO ; Start 04/23/16 at 21:00 Trazodone HCl (Desyrel) 50 mg QHS PO ; Start 04/23/16 at 21:00 Miscellaneous Information 80 mg DAILY PO ; Start 04/23/16 at 09:00; Status UNV Lorazepam (Ativan) 1 mg Q8H PRN PO ANXIETY Last administered on 04/23/16 04:18 ; Admin Dose 1 MG; Start 04/23/16 at 04:00 ZE FRANKLIN MD Apr 23, 2016 11:23
[2016-04-23] MEDS ORDERED: [UNRECOGNIZED DRUG - OTHER] XX SCH (11:30)
[2016-04-23] MEDS ORDERED: LURASIDONE HCL 80 MG XX SCH (11:30)
[2016-04-23] MEDS ORDERED: QUETIAPINE 100 MG TAB PO SCH (21:00)
[2016-04-23] MEDS ORDERED: ATORVASTATIN 10 MG TAB PO SCH (21:00)
[2016-04-23] MEDS ORDERED: traZODone 50 MG TAB PO SCH (21:00)
--- NOTE | 2016-04-23 22:32 | DS ---
DATE OF ADMISSION: 04/22/2016 DATE OF DISCHARGE: 04/23/2016- pt signed out against medical advise FINAL DISCHARGE DIAGNOSES: 1. Atrial fibrillation with rapid ventricular rate. 2. Systolic congestive heart failure exacerbation. 3. Hypertension. 4. Chronic kidney disease. CONSULTATIONS DONE DURING THIS HOSPITALIZATION: Cardiology consult was called in, but the patient signed out against medical advice. HOSPITAL COURSE: This is a 40-year-old male with a past medical history of hypertension, chronic kidney disease, CHF, depression, schizophrenia, history of pacemaker placement who presented with a complaint of shortness of breath and palpitations. He was noted to be in atrial fibrillation with rapid ventricular rate. The patient also had acute CHF exacerbation, systolic. He was started on Lasix and rate controlled medications. The patient has remained stable overnight, but today morning he wanted to go home, and he signed out against medical advice. The nurses explained him about the risks and complications of signing out against medical advice including possible . He understood it and verbalized back to the nursing staff. The patient ultimately signed out against medical advice. DISPOSITION: Please note that the patient signed out against medical advice during this hospitalization, and he did not wait for any prescriptions and physician evaluation. At the time of signing out against medical advice, he was evaluated in the morning time during the regular physician rounding. Dictated By: ZE FRANKLIN MD, KP/NICKI Conf#: [id number] DID#: [id number] MTDD
== END 2016-04-23 11:20 | disposition left against medical advice (07) | DRG 308 ==
LOC: E/R 19:15 → TEL 21:27
PROVIDERS: ADMIT Internal Medicine; ATTEND Internal Medicine
DX: I48.91 Unspecified atrial fibrillation (principal); I50.23 Acute on chronic systolic (congestive) heart failure; I13.0 Hypertensive heart and chronic kidney disease with heart failure and stage 1 through stage 4 chronic kidney disease, or unspecified chronic kidney disease; N18.9 Chronic kidney disease, unspecified; Z95.0 Presence of cardiac pacemaker; F31.9 Bipolar disorder, unspecified
CPT/HCPCS: 36415; 71010; 80048; 82550; 82553; 83036; 83735; 84100; 84484; 85025; 85610; 85730; 93005; 96374; 96375; 96376; J1940

== ENCOUNTER 2016-05-18 06:07 | Day surgery (SDC) | payer OTHER ==
[2016-05-18] VITALS (9 sets, daily range): BP systolic 106–145; BP diastolic 60–109; PULSE 77–122; RESP 16–40
[~2016-05-18] VITALS: Ht 182.9 cm; Wt 136.0 kg
[~2016-05-18 06:07] MED LIST changes: +BUSP10TA2 PO
[2016-05-18] MEDS ORDERED: PROPOFOL 20 ML ONE (07:22)
[2016-05-18] MEDS ORDERED: LIDOCAINE 1% (MDV) 20 ML INJ ONE (07:22)
[2016-05-18] MEDS ORDERED: SOD CHLORIDE 0.9% 1,000 ML IV SCH (08:30)
--- NOTE | 2016-05-18 10:47 | OPR ---
DATE OF OPERATION: 05/18/2016 The patient was brought to the catheterization laboratory in a fasting state. PREOPERATIVE DIAGNOSIS: Atrial fibrillation. POSTOPERATIVE DIAGNOSIS: Atrial fibrillation. PROCEDURES PERFORMED: Unsuccessful synchronized cardioversion. DESCRIPTION OF PROCEDURE: The patient was brought to the catheterization lab in a fasting state. I nformed consent was signed for the procedure and sedation. The patient was given sedation with the assistance of Dr. Atwood by anesthesia. Pads were placed in the usual position. The patient has been taking uninterrupted Eliquis. Four attempted cardioversions with varying pad positions at maximum energies were undertaken and no conversion to sinus rhythm was successful. CONCLUSION: Unsuccessful conversion to sinus rhythm. PLAN: To continue anticoagulation at this time. Dictated By: LUIS ENIRQUE MONTERO/NICKI Conf#: [id number] DID#: [id number]
== END 2016-05-18 10:22 | disposition home or self-care (01) ==
LOC: CCL 06:07 → SDS 06:11 → CCL 10:22
PROVIDERS: ATTEND Internal Medicine Cardiovascular Disease
DX: I48.91 Unspecified atrial fibrillation (principal); I10 Essential (primary) hypertension; I25.10 Atherosclerotic heart disease of native coronary artery without angina pectoris; I50.9 Heart failure, unspecified; E66.01 Morbid (severe) obesity due to excess calories; Z68.41 Body mass index [BMI] 40.0-44.9, adult
CPT/HCPCS: 92960; Z7610

== ENCOUNTER 2016-05-20 19:38 | Emergency (ER) | payer OTHER ==
[~2016-05-20] VITALS: Ht 182.9 cm; Wt 138.5 kg
[2016-05-20 19:47] VITALS: Ht 182.9 cm; Wt 138.5 kg
--- NOTE | 2016-05-20 21:52 | ERD ---
ER Documentation Chief Complaint Date/Time DATE: 05/20/16 TIME: 21:51 Chief Complaint palpitation/sob since this pm HPI 40-year-old male with a history of atrial fibrillation, hypertension, CKD, CHF with an AICD presenting for palpitations that started earlier today around 3 PM. Currently he feels much better. He had an associated pressure-like chest discomfort with the palpitations. He had mild shortness of breath. He had diltiazem at home which she is not supposed to take, however he took it because it has helped in the past. He is currently on carvedilol only for his rate control. All of his symptoms have now resolved. Of note, the patient was here 2 days ago and underwent elective cardioversion which was unsuccessful. His chief dietitian is Dr. Webb. They are planning to do an ablation soon. ROS All systems reviewed and are negative except as per history of present illness. Medications Home Meds Reported Medications Buspirone Hcl* (Buspirone Hcl*) 10 Mg Tab, 10 MG PO BID, TAB 04/22/16 Apixaban* (Eliquis*) 5 Mg Tablet, 5 MG PO BID, TAB 03/22/16 Escitalopram Oxalate* (Lexapro*) 10 Mg Tablet, 10 MG PO DAILY, #30 TAB 03/22/16 Quetiapine Fumarate* (Seroquel*) 100 Mg Tablet, 100 MG PO HS, #30 TAB 03/22/16 Lisinopril* (Zestril*) 20 Mg Tablet, 20 MG PO DAILY, #30 TAB 03/22/16 Lurasidone Hcl (LATUDA) 80 Mg Tablet, 80 MG PO DAILY, #30 TAB 03/22/16 Carvedilol* (Carvedilol*) 12.5 Mg Tablet, 12.5 MG PO BID, #60 TAB 03/22/16 Furosemide* (Furosemide*) 40 Mg Tablet, 40 MG PO DAILY, TAB 01/04/16 Atorvastatin Calcium (Atorvastatin Calcium) 10 Mg Tablet, 10 MG PO QHS, #30 TAB 01/04/16 Bupropion Hcl* (Wellbutrin XL*) 150 Mg Tab.sr.24h, 150 MG PO QAM, TAB.SA 01/04/16 Trazodone Hcl* (Trazodone Hcl*) 50 Mg Tablet, 50 MG PO QHS, #30 TAB 01/04/16 Allergies Allergies: Coded Allergies: shellfish derived (Verified Allergy, Unknown, ITCHY, 04/22/16) shrimp (Verified Allergy, Unknown, 04/22/16) PMhx/Soc History of Surgery: No Anesthesia Reaction: No Hx Neurological Disorder: No Hx Respiratory Disorders: No Hx Cardiac Disorders: Yes (htn, afib) Hx Psychiatric Problems: Yes (depression ) Hx Miscellaneous Medical Probl: No Hx Alcohol Use: No Hx Substance Use: No Hx Tobacco Use: No Smoking Status: Former smoker FmHx Family History: No diabetes Physical Exam Vitals Vital Signs Date Time Temp Pulse Resp B/P Pulse Ox O2 Delivery O2 Flow Rate FiO2 05/20/16 23:25 98.2 93 23 128/77 97 Room Air 05/20/16 21:15 91 22 110/84 95 Room Air 05/20/16 21:15 Nasal Cannula 2.0 05/20/16 19:47 97.5 64 20 118/82 95 Physical Exam Const: Well-appearing, no distress Head: Atraumatic Eyes: Normal Conjunctiva ENT: Normal External Ears, Nose and Mouth. Neck: Full range of motion..~ No meningismus. Resp: Clear to auscultation bilaterally Cardio: Regular rate, irregularly irregular rhythm, no murmurs. 2+ distal pulses. Abd: Soft, non tender, non distended. Normal bowel sounds Skin: No petechiae or rashes Back: No midline or flank tenderness Ext: 1+ pedal nonpitting edema bilaterally, no cyanosis Neur: Awake and alert Psych: Normal Mood and Affect Result Diagram: 05/20/16213405/20/162134 Results 24 hrs Laboratory Tests Test 05/20/16 21:35 Anion Gap 17 Basophils # 0.010^3/ul Basophils % 0.4% Blood Urea Nitrogen 15mg/dl Calcium Level 9.2mg/dl Carbon Dioxide Level 24mmol/L Chloride Level 105mmol/L Creatinine 1.23mg/dl Eosinophils # 0.110^3/ul Eosinophils % 1.2% Glucose Level 107mg/dl Hematocrit 44.9% Hemoglobin 15.2g/dl Lymphocytes # 1.410^3/ul Lymphocytes % 15.0% Magnesium Level 1.7mg/dl Mean Corpuscular Hemoglobin 29.7pg Mean Corpuscular Hemoglobin Concent 33.9g/dl Mean Corpuscular Volume 87.7fl Mean Platelet Volume 9.2fl Monocytes # 1.310^3/ul Monocytes % 13.9% Neutrophils # 6.410^3/ul Neutrophils % 69.2% Nucleated Red Blood Cells # 0.010^3/ul Nucleated Red Blood Cells % 0.0/100WBC Platelet Count 60335^3/UL Potassium Level 3.7mmol/L Red Blood Count 5.1210^6/ul Red Cell Distribution Width 13.2% Sodium Level 142mmol/L Troponin I 0.015ng/ml White Blood Count 9.310^3/ul Current Medications Medications (Trade) Dose Ordered Sig/[place] Route PRN Reason Start Time Stop Time Status Last Admin Dose Admin Potassium Chloride (Klor-Con 20) 40 meq ONCE STAT PO 05/20/16 22:36 05/20/16 22:37 DC 05/20/16 22:57 Magnesium Chloride (Mag 64) 128 mg ONCE ONCE PO 05/20/16 23:00 05/20/16 23:01 DC 05/20/16 22:57 Procedures/MDM EMERGENT LABS AND DIAGNOSTIC STUDIES: Lab Results above were reviewed and interpreted by me. All labs are within normal limits, however potassium and magnesium were on the lower end of normal. EKG: Rate/Rhythm: Atrial fibrillation with heart rate 109 bpm QRS, ST, T-waves: No changes consistent w/ acute ischemia Impression: No evidence of ischemia, atrial fibrillation Radiology Results as interpreted by Radiology below were reviewed by Dwain Diana MD: Chest x-ray shows no acute abnormalities Initial Nursing notes reviewed. Previous Medical Records requested via the Electronic Health Record. EMERGENCY DEPARTMENT COURSE / MEDICAL DECISION MAKING: Patient is presenting with palpitations that have now resolved. His EKG shows A. fib with RVR at 109, however at bedside the patient's heart rate is in the 80s. He is currently asymptomatic. I reviewed his records and he has a history of coronary angiogram which was normal. I suspect his symptoms were due to paroxysmal A. fib. He was given potassium and magnesium orally while in the ED. He remained hemodynamically stable. There is no evidence of infection on exam. There is no evidence of acute heart failure or acute coronary syndrome. I believe the patient is stable for discharge at this time with follow-up with his chief dietitian in about 2 days. Return precautions were discussed. He was discharged in stable condition. Patient's blood pressure was elevated (>120/80) but appears stable without evidence of hypertensive emergency or urgency. The patient was counseled about the risks of hypertension and urged to pursue outpatient monitoring and therapy within a week with their primary care physician. Departure Diagnosis: Primary Impression: Palpitations Additional Impression: Atrial fibrillation Atrial fibrillation type: chronic Qualified Code: I48.2 - Chronic atrial fibrillation Condition: Stable YOVANA DIANA MD May 20, 2016 21:52
[2016-05-20 21:55] LABS: ADD SCAN DIFF NO
[2016-05-20 21:58] LABS: BASOPHILS % 0.4 % (0.0-2.0); EOSINOPHILS # 0.1 10^3/ul (0.0-0.5); EOSINOPHILS % 1.2 % (0.0-7.0); HEMATOCRIT 44.9 % (42.0-52.0); HEMOGLOBIN 15.2 g/dl (14.0-18.0); LYMPHOCYTES # 1.4 10^3/ul (0.8-2.9); MEAN CORPUSCULAR HEMOGLOBIN 29.7 pg (29.0-33.0); MEAN CORPUSCULAR HGB CONC 33.9 g/dl (32.0-37.0); MEAN CORPUSCULAR VOLUME 87.7 fl (82.0-101.0); MEAN PLATELET VOLUME 9.2 fl (7.4-10.4); MONOCYTE # 1.3 10^3/ul (0.3-0.9); MONOCYTES % 13.9 % (0.0-11.0); NEUTROPHIL # 6.4 10^3/ul (1.6-7.5); NEUTROPHILS % 69.2 % (39.0-77.0); PLATELET COUNT 212 10^3/UL (140-415); RED BLOOD COUNT 5.12 10^6/ul (4.70-6.10); RED CELL DISTRIBUTION WIDTH 13.2 % (11.5-14.5); WHITE BLOOD COUNT 9.3 10^3/ul (4.8-10.8)
[2016-05-20 22:15] LABS: POTASSIUM 3.7 mmol/L (3.5-5.1)
[2016-05-20 22:18] LABS: CALCIUM 9.2 mg/dl (8.4-10.2); CREATININE 1.23 mg/dl (0.61-1.24)
[2016-05-20 22:19] LABS: MAGNESIUM 1.7 mg/dl (1.7-2.5)
[2016-05-20 22:30] LABS: TROPONIN-I 0.015 ng/ml (0.00-0.12)
[2016-05-20] MEDS ORDERED: POTASSIUM CHLORIDE (SR) 20 MEQ TAB PO STA (22:36)
[2016-05-20] MEDS ORDERED: MAGNESIUM CHLORIDE (SR) 64 MG TAB PO ONE (23:00)
[2016-05-20 23:25] VITALS: BP 128/77; PULSE 93; RESP 23; TEMP 98.2
--- NOTE | 2016-05-20 23:34 | RADRPT ---
PROCEDURE: XR Chest. CLINICAL INDICATION: Shortness of breath. TECHNIQUE: AP Portable chest. COMPARISON: No pertinent prior examinations were submitted for comparison. FINDINGS: The cardiomediastinal silhouette is normal. The lungs are clear. The osseous structures are unrema rkable. IMPRESSION: No acute findings. RPTAT: HIKT .Alen York MD, MD Date Time Electronically viewed and signed by .Alen York MD, MD on 05/20/2016 23:34 .T/
== END 2016-05-20 23:25 | disposition home or self-care (01) ==
LOC: E/R 19:38
DX: R00.2 Palpitations (principal); I12.9 Hypertensive chronic kidney disease with stage 1 through stage 4 chronic kidney disease, or unspecified chronic kidney disease; N18.9 Chronic kidney disease, unspecified; I50.9 Heart failure, unspecified; R40.2142 Coma scale, eyes open, spontaneous, at arrival to emergency department; R40.2252 Coma scale, best verbal response, oriented, at arrival to emergency department; R40.2362 Coma scale, best motor response, obeys commands, at arrival to emergency department; Z87.891 Personal history of nicotine dependence
CPT/HCPCS: 36415; 71010; 80048; 83735; 84484; 85025; Z7502; Z7610